=== PATIENT | male | born 1990 | race Two or more races ===

== ENCOUNTER 2017-05-25 12:30 | Emergency (ER) | payer MEDICAID, OTHER ==
[~2017-05-25] VITALS: Ht 167.6 cm; Wt 97.5 kg
[2017-05-25 13:38] VITALS: BP 135/82
[2017-05-25] MEDS ORDERED: IPRATROPIUM BROM 0.5 MG/2.5ML INH SOL NEB ONE (13:45)
[2017-05-25] MEDS ORDERED: ALBUTEROL SULF 2.5 MG/0.5ML(0.5%) NEB SOLN NEB ONE (13:45)
[2017-05-25] MEDS ORDERED: CIPROFLOXACIN 0.3%OPTH(EYE) SOL 5ML EACHEYE ONE (18:45)
== END 2017-05-25 18:56 | disposition home or self-care (01) ==
LOC: ER 12:30
DX: J45.901 Unspecified asthma with (acute) exacerbation (principal)
CPT/HCPCS: 71046; 94640